=== PATIENT | female | born 1955 | race Caucasian/White ===

== ENCOUNTER → 2018-01-26 | Outpatient (CLI) | payer BC ==
[~2018-01-26] MED LIST: ASCO-599 PO; ASPI-715 PO; CALC-797 PO; GUAI-545 PO; OMEG-11 PO; SIMV-42 PO; ST.1POWD PO
--- NOTE | 2018-01-26 14:04 | RADIOLOGY IMAGING REPORT ---
FACILITY: [facility] [place] PATIENT NAME: KELSEY CABRERA : [id number] MR: [id number] V: [id number] EXAM DATE: [id number] ORDERING PHYSICIAN: BENNIE DRAKE TECHNOLOGIST: Zoe Patton PROCEDURE:BILATERAL DIGITAL SCREENING MAMMOGRAM WITH CAD ASSISTED INTERPRETATION & 3D TOMOSYNTHESIS COMPARISON:01/26/17, 01/26/16 VIEWS OBTAINED: Bilateral 2D full field CC & MLO & corresponding 3D tomography INDICATIONS:SCREENING TISSUE DENSITY: Scattered fibroglandular densities. FINDINGS: There is no mammographic finding suspicious for malignancy & no significant change compared to prior mammograms. DIAGNOSTIC CATEGORY 1--NEGATIVE. RECOMMENDATIONS: ROUTINE ANNUAL BILATERAL MAMMOGRAM AND CLINICAL EVALUATION. IMPRESSION: BIRADS 1: Negative. Dictated by: Sylvia Thao M.D. on 01/26/2018 at 10:17 Transcribed by: VELVET on 01/26/2018 at 13:26 Approved by: Sylvia Thao M.D. on 01/26/2018 at 14:03 [facility]
== END ==
LOC: MAMO 04:20
PROVIDERS: ATTEND Nurse Practitioner Family
DX: Z12.31 Encounter for screening mammogram for malignant neoplasm of breast (principal)
CPT/HCPCS: 77063; 77067

== ENCOUNTER → 2018-11-19 | Outpatient (CLI) | payer BC ==
--- NOTE | 2018-11-19 10:01 | RADIOLOGY IMAGING REPORT ---
FACILITY: [facility] [place] PATIENT NAME: Elaine Blanco : 1955 MR: [id number] V: [id number] EXAM DATE: ORDERING PHYSICIAN: BENNIE DRAKE TECHNOLOGIST: Location: [facility] Patient: Elaine Blanco : 1955 Visit/Account:[id number] Date of Sevice: 11/19/2018 DEXA Scan Clinical history: Osteopenia. Comparison: None. . HIP: Bone mineral density (BMD) measured in the Left femoral neck region correlates with a Z-score 0.2 and a T-score of -1.0 which is Normal as defined by the World Health Organization. The corresponding risk of fracture in the hip is 2 times compared with a young adult reference population. Bone mineral density (BMD) measured in the Femoral Neck region measures 0.898 g/cm2. FOREARM: The bone mineral density (BMD) measured in the ULTRADISTAL Left forearm, where trabecular bone predom inates, correlates with a Z-score -0.6 and a T-score of -1.8 which is osteopenia as defined by the Wo rld Health Organization. The corresponding risk of fracture in the distal forearm is 3-4 times elpidio red with a young adult reference population. The bone mineral density (BMD) in the MIDSHAFT of the forearm, where cortical bone predominates, alexia elates with a Z-score -0.3 and a T-score of -1.4 which is osteopenia as defined by the World Health O rganization. The corresponding risk of fracture in the midshaft of the forearm is 2-3 times compared with a young adult reference population. IMPRESSION: 1. Left Hip: Normal. 2. Femoral Neck: Bone Mineral Density is 0.898 g/cm2 3. Left Forearm: Osteopenia. The next DEXA scan of this patient should include the following sites: Left hip and the left forearm. FRAX? WHO Fracture Risk Assessment Tool link: <http://www.shef.ac.uk/FRAX/tool.jsp?locationValue=9> PLEASE NOTE: 1) The World Health Organization defines low BMD as follows: T-score Normal > -1 Osteopenia < -1 and > -2.5 Osteoporosis < -2.5 without fractures Established osteoporosis < -2.5 with fractures 2) In general, you may wish to consider: Diagnosis Treatment Follow-up DEXA Normal BMD Prevention 2-3 years Osteopenia Prevention/therapy 1-2 years Osteoporosis Therapy Yearly 3) Fracture risk estimated from the T-score is more accurate for vertebral fractures (often spontane ous) than for hip fractures. Report Dictated By: Oswald Mayorga MD at 11/19/2018 9:51 AM Report E-Signed By: Oswald Mayorga MD at 11/19/2018 9:53 AM WSN:VIV
== END ==
LOC: RAD 00:47
PROVIDERS: ATTEND Nurse Practitioner Family
DX: M85.832 Other specified disorders of bone density and structure, left forearm (principal)
CPT/HCPCS: 77080